=== PATIENT | female | born 1990 | race Caucasian/White ===

== ENCOUNTER 2017-01-12 10:31 | Emergency (ER) | payer OTHER ==
--- NOTE | 2017-01-12 11:06 | EDPHY ---
H & P Stated Complaint: r/o ovarian cyst left side Time Seen by Provider: 01/12/17 10:40 - Personal History LMP (Females 10-55): 8-14 Days Ago Current Tetanus Diphtheria and Acellular Pertussis (TDAP): Yes Tetanus Vaccine Date: unsure - Social History Smoking Status: Never smoked Constitutional: Initial Vital Signs Temperature (C) 36.5 C 01/12/17 10:38 Heart Rate 68 01/12/17 10:38 Respiratory Rate 14 01/12/17 10:38 Blood Pressure 109/75 01/12/17 10:38 O2 Sat (%) 94 01/12/17 10:38 O2 Delivery Mode Room Air Allergies/Adverse Reactions: No Known Allergies Allergy (Unverified 07/01/13 17:15) Home Medications: Medication Instructions Recorded Hydrocodone/APAP 5/325 [Thurmond 1 - 2 each PO Q4-6PRN PRN #20 tab 01/12/17 5/325] Medical Decision Making - Diagnostics Imaging Results: Imaging Impressions Pelvic/Renal Ultrasound 01/12/17 11:01 Impression: 1. There is a benign-appearing 1.1 cm left ovarian follicular cyst, with no torsion. 2. Small amount of free fluid in the pelvic cul-de-sac which is a nonspecific finding but could represent rupture of an ovarian follicle or cyst. Findings were discussed with Jose Esposito MD at 12:12, on 01/12/2017. . ED Course/Re-evaluation: CHIEF COMPLAINT: Abdominal pain HISTORY OF PRESENT ILLNESS: The patient is a 26 y/o female arriving from [facility] complaining of waxing and waning left-sided abdominal pain for the last 3 weeks. She initially noticed vaginal spotting, then developed left lower quadrant abdominal pain. Her spotting resolved after 3 days and she started her normal menstrual period about a week later. Her pain improves somewhat with a warm compress, but has never completely disappeared since onset. She has had no sexual activity for the last month. She cannot identify obvious precipitating cause and denies recent illness or injury. A urine test and UA this morning were normal. No associated fever, vomiting, diarrhea, shortness of breath, urinary symptoms, or other complaints. She denies pertinent medical history. REVIEW OF SYSTEMS: A 10 point review of systems was performed and is negative with the exception of the elements mentioned in the history of present illness. PHYSICAL EXAM: General Appearance: Alert, well hydrated, appropriate, and non-toxic appearing. Head: Atraumatic without scalp tenderness or obvious injury Eyes: Pupils equal, round, reactive to light and accommodation, EOMI, no trauma , no injection. Nose: Atraumatic, no rhinorrhea, clear. Throat: Mucus membranes moist. Neck: Supple, non-tender, no lymphadenopathy. Respiratory: No retractions, no distress, no wheezes, and no accessory muscle use. Lungs are clear to auscultation bilaterally. Cardiovascular: Regular rate and rhythm, no murmurs, rubs, or gallops. Good capillary refill all extremities. Gastrointestinal: Abdomen is soft, moderate LLQ tenderness, non-distended, no masses, no rebound, no guarding, no peritoneal signs. Musculoskeletal: Normal active ROM of all extremities, atraumatic. Neurological: Alert, appropriate, and interactive. Nonfocal neuro exam. Skin: No rashes, good turgor, no nodules on palpation. PAST MEDICAL HISTORY: Denies PAST SURGICAL HISTORY: Denies SOCIAL HISTORY: [employer] student DIAGNOSTICS/PROCEDURES/CRITICAL CARE TIME: Pelvic US: Ruptured ovarian cyst DIFFERENTIAL DIAGNOSIS: The differential diagnosis for the patient's abdominal pain included but was not limited to ovarian cyst, pelvic inflammatory disease, ovarian torsion, urinary tract infection, ectopic , cholecystitis, and appendicitis. MEDICAL DECISION MAKING: This is a normally healthy 26 y/o female who presents with a 3-week history of waxing and waning LLQ abdominal pain. She had some vaginal spotting for 3 days just prior to pain onset, but this resolved. LNMP was 14 days ago. She has moderate LLQ tenderness on exam, but is well-appearing and afebrile. Plan for IV , labs, and pelvic US to rule out ovarian cyst. We will not repeat UA and test that were normal this morning. She declines pain medication at this time. Reviewed CBC from [facility] sent by fax. Labs are unremarkable. US shows ruptured ovarian cyst. Reevaluated patient and discussed results. She will be discharged in good condition with Thurmond and referral to OBGYN for follow up. Return precautions given. She is comfortable with this plan. Departure - Departure Disposition: Home, Routine, Self-Care Clinical Impression: Ovarian cyst, Ruptured ovarian cyst Condition: Good Instructions: Ovarian Cyst (ED), Ruptured Ovarian Cyst (ED) Additional Instructions: 1. Take 600mg ibuprofen every 6-8 hours as needed for pain for the next few days. 2. Use Thurmond as prescribed when needed for severe pain. 3. Follow up with PATRICA Mujica, this week. 4. Return to the ED for any worsening of condition. Referrals: NONE *PRIMARY CARE P,. [Primary Care Provider] - As per Instructions Maria Elena Garcia MD [Medical Doctor] - As per Instructions Prescriptions: Hydrocodone/APAP 5/325 [Thurmond 5/325] 1 - 2 each PO Q4-6PRN PRN #20 tab PRN Reason: Pain, Moderate Report Scribed for: Jose Esposito Report Scribed by: Elizabet Okeefe Date of Report: 01/12/17 Time of Report: 11:07
[2017-01-12 12:35] VITALS: BP 100/63; PULSE 71; RESP 16; TEMP 98.8; O2SAT 96
== END 2017-01-12 12:35 | disposition home or self-care (01) ==
DX: N83.202 Unspecified ovarian cyst, left side (principal)